=== PATIENT | female | born 1990 | race American Indian/Alaskan Native ===

== ENCOUNTER 2016-11-18 00:04 | Emergency (ER) | payer OTHER ==
[2016-11-18 00:14] VITALS: BP 100/63; PULSE 85; RESP 20; TEMP 98; O2SAT 99
--- NOTE | 2016-11-18 00:55 | C.PDOC ---
History Of Present Illness 26 yo female come in for evaluation of multiple insect bite developed for past few days. As per pt, " its probably flees from my dog, I cant get rid of". Pt sts, rash is itchy, and generalized over body now. Otherwise, pt denies fever, chills, headache, dizziness, throat pain or swelling/tightness, cough, CP, SOB, dyspnea, wheezing, denies wound draining. Ambulate to ED for evaluation, not in any apparent distress. Time Seen by Provider: 11/18/16 00:17 Chief Complaint (Nursing): Abnormal Skin Integrity History Per: Patient Onset/Duration Of Symptoms: Gradual Past Medical History Reviewed: Historical Data, Nursing Documentation, Vital Signs Vital Signs: Last Vital Signs Temp 98 F 11/18/16 00:09 Pulse 85 11/18/16 00:09 Resp 20 11/18/16 00:09 BP 100/63 11/18/16 00:09 Pulse Ox 99 11/18/16 00:09 - Medical History PMH: No Chronic Diseases Surgical History: No Surg Hx Family History: States: No Known Family Hx - Social History Hx Alcohol Use: No Hx Substance Use: No Review Of Systems Except As Marked, All Systems Reviewed And Found Negative. Constitutional: Negative for: Fever, Chills ENT: Negative for: Mouth Pain, Mouth Swelling, Throat Pain Cardiovascular: Negative for: Chest Pain Respiratory: Negative for: Cough, Shortness of Breath, Wheezing Skin: Positive for: Rash Neurological: Negative for: Weakness, Numbness, Altered Mental Status, Headache , Dizziness Physical Exam - Physical Exam Appears: Well, Non-toxic, No Acute Distress Skin: Normal Color, Warm, Dry, Rash (generalized papular erythematous rash with central induration most over B/L LEs, lower abdomenal wall, B/L gluteus, B/L UEs.) Eye(s): bilateral: PERRL Nose: No Flaring Oral Mucosa: Moist, No Drooling Tongue: Normal Appearing, No Swelling Lips: Normal Appearing, No Swelling Throat: No Erythema, No Exudate, No Drooling, Other (Uvula midline, no edema.) Neck: Supple Respiratory: No Decreased Breath Sounds, No Accessory Muscle Use, No Stridor, No Wheezing Extremity: Normal ROM, No Pedal Edema Neurological/Psych: Oriented x3, Normal Speech ED Course And Treatment O2 Sat by Pulse Oximetry: 99 Pulse Ox Interpretation: Normal Progress Note: On re-evaluation, pt is afebrile, hemodynamicaly stable. Non- toxic. PulseOx 99% RA. ENT: no acute findings. Neck: Supple. Lungs: CTA /L, BS equal B/L. Skin: exam c/w diffuse papular rash, erythematous c/w insect bite r/o cellulitis. Pt advised on course of ds. ref. to F/u with PMD in 1-2 days for re-eavl. return to ED if any worsening or new changes. Disposition Counseled Patient/Family Regarding: Diagnosis, Need For Followup, Rx Given - Disposition Referrals: Rodrigo Mathis MD [Medical Doctor] - Disposition: HOME/ ROUTINE Disposition Time: 00:48 Condition: STABLE Additional Instructions: Take medication as prescribed Clean living area, bed Wash your clothes Follow up with PMD in 2-3 days for re-evaluation. Return to ED if any worsening or new changes. Prescriptions: Cephalexin [Keflex] 500 mg PO Q6 #28 capsule DiphenhydrAMINE [Benadryl] 25 mg PO BID #10 cap Prednisone [Deltasone] 20 mg PO DAILY #3 tablet Instructions: Insect Bite or Sting (ED), Cellulitis (ED) Forms: [employer] ([place]) - Clinical Impression Clinical Impression: Cellulitis, Insect bite - wound
== END 2016-11-18 01:18 | disposition home or self-care (01) ==
LOC: C.ER 00:04
DX: L03.90 Cellulitis, unspecified (principal); T14.8 Other injury of unspecified body region; W57.XXXA Bitten or stung by nonvenomous insect and other nonvenomous arthropods, initial encounter